=== PATIENT | female | born 1975 | race Caucasian/White ===

== ENCOUNTER 2018-07-17 12:06 | Day surgery (SDC) | payer BC ==
[2018-07-16 11:24] VITALS: BMI 42.0
[2018-07-17] MEDS ORDERED: Midazolam HCl 2 mg/2 ml Vial ONE (13:16)
[2018-07-17] MEDS ORDERED: Bupivacaine HCl 0.5%/Epinephrine 1:200,000/PF 30 ml Vial ONE ×2 (13:23→14:13)
[2018-07-17] MEDS ORDERED: Fentanyl 100 MCG/2 ML VIAL ONE ×2 (13:27→15:39)
[2018-07-17] MEDS ORDERED: Propofol 500 MG/50 ML VIAL ONE ×2 (13:29→14:49)
--- NOTE | 2018-07-17 15:01 | RAD ---
THORACIC SPINE 3 VIEW SERIES: INDICATION: Intraoperative fluoroscopic imaging of thoracic spine performed for spinal stimulator pl acement. FINDINGS: Partially imaged spinal stimulator leads overlie the thoracic spine. Spinal count is not p erformed on the basis of the provided intraoperative fluoroscopic imaging. Correlate with intraoperative findings. IMPRESSION: Intraoperative fluoroscopic imaging revealing partially imaged spinal leads overlying th e thoracic spine. Transcribed Date/Time: 07/17/2018 3:33 PM
[2018-07-17] MEDS ORDERED: PROPOFOL 200 MG/20 ML VIAL ONE (15:39)
[2018-07-17] MEDS ORDERED: Lidocaine 1% PF 5 ML VIAL ONE (15:39)
[2018-07-17] MEDS ORDERED: HYDROcodone/Acetaminophen 5/325 mg Tablet ONE (16:37)
--- NOTE | 2018-07-18 14:28 | OP ---
DATE OF PROCEDURE: 07/17/2018 PREOPERATIVE DIAGNOSES: 1. Chronic pain syndrome. 2. Postlaminectomy syndrome. 3. Complex regional pain syndrome. POSTOPERATIVE DIAGNOSES: 1. Chronic pain syndrome. 2. Postlaminectomy syndrome. 3. Complex regional pain syndrome. PROCEDURES PERFORMED: 1. Spinal cord stimulator generator implant. 2. Spinal cord stimulator lead implant x2. 3. Programming. 4. Fluoroscopy. ESTIMATED BLOOD LOSS: 5 mL. DESCRIPTION OF PROCEDURE: The patient was taken to the procedure room and placed prone on the procedure room table. A time-out was performed. The back was prepped with ChloraPrep and sterile drapes were applied. Using fluoroscopy, we identified the interspace of T12-L1. We anesthetized the skin below this. We made a vertical incision and blunt dissected this down to fascia. We then inserted the supplied 14-gauge Touhy needle in a paramedian technique to engage in the T12-L1 ligament. We used loss of resistance to gain access to the epidural space. Aspiration was negative for heme or CSF. An [address] Feng spinal cord stimulator electrode was inserted through the needle and advanced up the midline dorsal epidural space under continuous fluoroscopy to the top of T8. We placed a contralateral lead in the exact same fashion on the other side to place two parallel leads at the same level. The patient was woken out and we stimulated. Stimulation was felt in all pain areas. We then took the needles out taking care not to move the leads. We placed anchors over the leads and brought them down to the fascia layer. We clicked these anchors in place to affix them to the leads. We used 2-0 silk suture x2 for each lead to affix the anchors to the fascia. We then anesthetized the skin in the left upper buttock, we made a horizontal incision for the battery pocket. We blunt dissected this down the Yenny's fascia and dissected inferiorly and superiorly. We placed a tunneling device through this and made a tunnel between the two incisions. We inserted the leads and advanced this to the battery pocket. The leads were connected to the battery and torque wrench was used to affix the lead to the battery. Impedances were checked, which were all good. The battery was flipped into the pocket easily. We approximated the fascial layers using 2-0 Vicryl suture in a simple interrupted fashion. We then used celestina for the skin layer and a Dermabond as an occlusive dressing. Sterile 4x4s were placed after the Dermabond was dried and the patient was taken to the recovery room under stable condition without any apparent complications noted at this time. Job ID: [id number]
== END 2018-07-17 16:54 | disposition home or self-care (01) ==
LOC: SDC 12:06
PROVIDERS: ATTEND Specialist
PROC: 0JH70DZ Insertion of Multiple Array Stimulator Generator into Back Subcutaneous Tissue and Fascia, Open Approach (ICD-10-PCS; principal; 2018-07-17)
PROC: 00HU3MZ Insertion of Neurostimulator Lead into Spinal Canal, Percutaneous Approach (ICD-10-PCS; principal; 2018-07-17)
DX: M96.1 Postlaminectomy syndrome, not elsewhere classified (principal); G89.4 Chronic pain syndrome; G90.50 Complex regional pain syndrome I, unspecified
CPT/HCPCS: 72072; 76000; C1767; C1778; J0670; J0690; J2001; J2250; J2704; J3010

== ENCOUNTER 2019-10-28 08:46 | Outpatient (CLI) | payer BC ==
--- NOTE | 2019-10-28 14:02 | MRI ---
MR the lumbar spine without contrast: 10/28/2019 History: Postlaminectomy syndrome COMPARISON: 09/20/2016 TECHNIQUE: Multiplanar multisequence MR images were obtained of lumbar spine without IV contrast FINDINGS: On the basis of 5 lumbar type vertebral bodies, conus medullaris terminates at theL1 level. Sagittal STIR imaging demonstrates no focal area of osseous marrow edema. There is prominent artifact associated with postoperative hardware at the L5 and S1 levels which markedly limits assessment at L5-S1. There is metallic artifact also noted within the subcutaneous fat at the L1-2 level. Posterior dural thickening is suspected at the T11 and T12 region, incompletely assessed/visualized on this exam. T12-L1:Mild bilateral facet hypertrophy with no significant central canal or neural foraminal stenosi s L1-2:Mild bilateral facet hypertrophy. No significant central canal or neural foraminal stenosis L2-3:Intervertebral disc height and signal intensity within normal limits. No significant central can al or neural foraminal stenosis L3-4:Mild bilateral facet hypertrophy. No significant central canal or neural foraminal stenosis L4-5:There is disc space narrowing and disc desiccation with bilateral facet hypertrophy. No signific ant neural foraminal stenosis. No obvious central canal stenosis although assessment is limited secondary to hardware artifact L5-S1:Hardware artifact completely obscures evaluation for central canal and neural foraminal stenosi s Image retroperitoneal structures demonstrateno acute findings. There is a 1.4 cm T2 hyperintense stru cture associated with the left ovary which may represent a small cyst or dominant follicle. IMPRESSION: Lower lumbar spine postoperative hardware markedly limits assessment at L5-S1 and to a lesser degree L4-5. Otherwise, no significant central canal or neural foraminal stenosis. If symptoms for persists, CT myelogram advised. T2 hyperintense 1.4 lesion in the left hemipelvis, likely associated with the left ovary. This could be better assessed with follow-up pelvic ultrasound.
== END 2019-10-28 08:47 | disposition home or self-care (01) ==
LOC: MRI 08:46
PROVIDERS: ATTEND Nurse Practitioner Family
DX: M96.1 Postlaminectomy syndrome, not elsewhere classified (principal); Z98.890 Other specified postprocedural states
CPT/HCPCS: 72148

== ENCOUNTER 2022-04-26 11:33 | Outpatient (CLI) | payer BC | END 2022-04-26 11:34 | disposition home or self-care (01) | LOC: SLEEPLAB 11:33 | PROVIDERS: ATTEND Family Medicine | DX: G47.33 Obstructive sleep apnea (adult) (pediatric) (principal) | CPT/HCPCS: 95800 ==